=== PATIENT | female | born 1990 | race Caucasian/White ===

== ENCOUNTER 2017-01-06 19:21 | Emergency (ER) | payer OTHER ==
[~2017-01-06] VITALS: Ht 172.7 cm; Wt 109.1 kg
[~2017-01-06 19:21] MED LIST: EFFE25TA PO; IRON50 MG PO; PHENERGAN 25 TA25 MG PO; PHENERGAN25 MG RC; PRENATAL VITAMI1 TA5 PO; PRENTAL 1 PLUS1 TAB PO; [UNRECOGNIZED DRUG - MIXTURE] PO
[2017-01-06 19:23] VITALS: TEMP 98
[2017-01-06 19:47] LABS: BASO % 0.4 % (0.0-2.0); EOS # 0.2 (0.0-0.7); EOS % 2.2 % (0-4.0); GRAN # 7.9 (1.4-6.5); GRAN % 73.7 % (42.2-75.2); HEMATOCRIT 31.5 % (37.0-47.0); HEMOGLOBIN 10.3 g/dl (12.5-16.0); LYMPH # 1.8 (1.2-3.4); LYMPH % 17.2 % (20.0-51.0); MEAN CELL VOLUME 77 fl (80.0-100.0); MEAN CORPUSCULAR HEMOGLOBIN 25 pg (27.0-31.0); MEAN CORPUSCULAR HGB CONC 33 g/dl (33.0-37.0); MEAN PLATELET VOLUME 10.9 fl (7.4-10.4); MONO # 0.6 (0.1-0.6); MONO % 5.8 % (1.7-9.3); PLATELET COUNT 205 K/mm3 (130-400); RED BLOOD COUNT 4.07 M/mm3 (4.10-5.30); REDCELL DISTRIBUTION WIDTH-CV 13.8 % (11.5-14.5); WHITE BLOOD COUNT 10.7 K/mm3 (4.8-10.8)
[2017-01-06 19:50] LABS: INR 1.2 (0.8-3.0); PROTHROMBIN TIME 12.8 SECONDS (9.7-12.8)
[2017-01-06 19:58] LABS: CALCIUM 8.7 mg/dL (8.4-10.2); CREATININE, serum 0.71 mg/dL (0.52-1.25)
[2017-01-06 20:52] VITALS: BP 110/75; PULSE 84
[2017-01-07] MEDS ORDERED: FERROUS SU325 MG/TAB PO (16:28)
[2017-01-07] MEDS ORDERED: METHERGINE0.2 MG/TAB PO (16:28)
[2017-01-07] MEDS ORDERED: DOXYCYCLINE HY100 MG PO (16:29)
[2017-01-07] MEDS ORDERED: IBU800 M1 PO (16:37)
[2017-01-07] MEDS ORDERED: PERCOCET 325 MG1 TA2 PO (16:37)
== END 2017-01-06 21:03 | disposition home or self-care (01) ==
LOC: COL.ER 19:21
PROVIDERS: Emergency Medicine
DX: O03.4 Incomplete spontaneous abortion without complication (principal)
CPT/HCPCS: J2405

== ENCOUNTER 2017-01-07 13:04 | Observation (INO) | payer OTHER ==
[2017-01-07] VITALS (9 sets, daily range): BP systolic 88–110; BP diastolic 40–54; PULSE 76–89; TEMP 97.8–98.1
[~2017-01-07] VITALS: Ht 172.7 cm; Wt 109.1 kg
[2017-01-07 13:32] LABS: BASO % 0.3 % (0.0-2.0); EOS # 0.2 (0.0-0.7); EOS % 1.9 % (0-4.0); GRAN % 69.6 % (42.2-75.2); HEMATOCRIT 26.4 % (37.0-47.0); HEMOGLOBIN 8.6 g/dl (12.5-16.0); LYMPH # 2.1 (1.2-3.4); MEAN CELL VOLUME 77 fl (80.0-100.0); MEAN CORPUSCULAR HEMOGLOBIN 25 pg (27.0-31.0); MEAN CORPUSCULAR HGB CONC 33 g/dl (33.0-37.0); MEAN PLATELET VOLUME 10.8 fl (7.4-10.4); MONO # 0.7 (0.1-0.6); MONO % 6.6 % (1.7-9.3); PLATELET COUNT 212 K/mm3 (130-400); RED BLOOD COUNT 3.44 M/mm3 (4.10-5.30); REDCELL DISTRIBUTION WIDTH-CV 14.3 % (11.5-14.5); WHITE BLOOD COUNT 10.1 K/mm3 (4.8-10.8)
[2017-01-07 13:40] LABS: ADJUSTED CALCIUM 9.2 mg/dL (8.4-10.2); ALBUMIN 3.4 gm/dL (3.5-5.0); BILIRUBIN,TOTAL 0.6 mg/dL (0.0-1.0); CALCIUM 8.7 mg/dL (8.4-10.2); CREATININE, serum 0.64 mg/dL (0.52-1.25); POTASSIUM 3.8 mmol/L (3.4-5.0); TOTAL PROTEIN 6.2 gm/dL (6.4-8.2)
[2017-01-07] MEDS ORDERED: FERROUS SU325 MG/TAB PO (16:28)
[2017-01-07] MEDS ORDERED: METHERGINE0.2 MG/TAB PO (16:28)
[2017-01-07] MEDS ORDERED: DOXYCYCLINE HY100 MG PO (16:29)
[2017-01-07] MEDS ORDERED: IBU800 M1 PO (16:37)
[2017-01-07] MEDS ORDERED: PERCOCET 325 MG1 TA2 PO (16:37)
[2017-01-07 19:47] LABS: BASO % 0.2 % (0.0-2.0); EOS # 0.1 (0.0-0.7); GRAN # 3.9 (1.4-6.5); GRAN % 59.9 % (42.2-75.2); LYMPH % 30.6 % (20.0-51.0); MEAN CELL VOLUME 79 fl (80.0-100.0); MEAN CORPUSCULAR HGB CONC 32 g/dl (33.0-37.0); MEAN PLATELET VOLUME 11.1 fl (7.4-10.4); MONO # 0.4 (0.1-0.6); MONO % 6.8 % (1.7-9.3); PLATELET COUNT 156 K/mm3 (130-400); RED BLOOD COUNT 2.79 M/mm3 (4.10-5.30); REDCELL DISTRIBUTION WIDTH-CV 14.2 % (11.5-14.5); WHITE BLOOD COUNT 6.5 K/mm3 (4.8-10.8)
[2017-01-07 19:54] LABS: HEMOGLOBIN 7.1 g/dl (12.5-16.0); MEAN CORPUSCULAR HEMOGLOBIN 25 pg (27.0-31.0)
[2017-01-08] VITALS (12 sets, daily range): BP systolic 84–120; BP diastolic 38–75; PULSE 68–76; TEMP 97.8–98.4
[2017-01-08 10:11] LABS: MEAN CELL VOLUME 80 fl (80.0-100.0); MEAN CORPUSCULAR HGB CONC 33 g/dl (33.0-37.0); MEAN PLATELET VOLUME 11.1 fl (7.4-10.4); PLATELET COUNT 151 K/mm3 (130-400); RED BLOOD COUNT 3.48 M/mm3 (4.10-5.30); REDCELL DISTRIBUTION WIDTH-CV 14.3 % (11.5-14.5); WHITE BLOOD COUNT 5.6 K/mm3 (4.8-10.8)
[2017-01-08 10:25] LABS: ADJUSTED CALCIUM 9.3 mg/dL (8.4-10.2); BILIRUBIN,TOTAL 0.5 mg/dL (0.0-1.0); CALCIUM 8.5 mg/dL (8.4-10.2); CREATININE, serum 0.68 mg/dL (0.52-1.25); POTASSIUM 3.5 mmol/L (3.4-5.0); TOTAL PROTEIN 5.7 gm/dL (6.4-8.2)
[2017-01-08 11:08] LABS: HEMATOCRIT 27.8 % (37.0-47.0); HEMOGLOBIN 9.1 g/dl (12.5-16.0); MEAN CORPUSCULAR HEMOGLOBIN 26 pg (27.0-31.0)
== END 2017-01-08 13:18 | disposition home or self-care (01) ==
LOC: COL.ER 13:04 → OB 15:57 → COL.ER 15:59 → OB 01-08 13:18
PROVIDERS: Family Medicine; Student in an Organized Health Care Education/Training Program
DX: O03.4 Incomplete spontaneous abortion without complication (principal); O99.011 Anemia complicating pregnancy, first trimester; D64.9 Anemia, unspecified
CPT/HCPCS: J1940; J2270; J2405; J2704; J7030; J7050; J7120; P9016